=== PATIENT | male | born 1975 | race American Indian/Alaskan Native ===

== ENCOUNTER 2021-06-21 16:30 | Emergency (ER) | payer OTHER ==
--- NOTE | 2021-06-21 18:28 | Emergency Department Report ---
ED General Adult HPI - General Chief complaint: Extremity Injury, Upper Stated complaint: SWOLLEN LEFT HAND Time Seen by Provider: 06/21/21 17:29 Source: patient Mode of arrival: Ambulatory Limitations: No Limitations - History of Present Illness Initial comments: 45-year-old -[place] male patient presents with complaints of left hand pain for the past few days. Patient states the pain began after he shut his hand in a door. He rates the pain as a 6/10 in severity and denies trying any OTC medications for symptoms. No numbness tingling or weakness in the hand per patient. He states the hand appears red and states he has some difficulty making a fist. He denies any penetrating injuries -: Sudden - Related Data Previous Rx's Medication Instructions Recorded Last Taken Type Acetaminophen/Codeine [Tylenol 1 tab PO Q8H PRN #6 tab 06/21/21 Unknown Rx /Codeine # 3 tab] Clindamycin [Clindamycin CAP] 300 mg PO Q6H 10 Days #40 capsule 06/21/21 Unknown Rx Clobetasol Propionate [Temovate 1 gm TP BID PRN 7 Days #1 oint...g. 06/21/21 Unknown Rx 0.05%] Naproxen 500 mg PO BID PRN #20 tablet 06/21/21 Unknown Rx Allergies Allergy/AdvReac Type Severity Reaction Status Date / Time No Known Allergies Allergy Verified 06/21/21 17:22 ED Review of Systems ROS: Stated complaint: SWOLLEN LEFT HAND Other details as noted in HPI Constitutional: denies: chills, fever, malaise Musculoskeletal: joint swelling, arthralgia Skin: rash (Bilaterally to palms of hand) Neurological: denies: numbness, paresthesias ED Past Medical Hx - Medications Home Medications: Home Medications Medication Instructions Recorded Confirmed Last Taken Type Acetaminophen/Codeine [Tylenol 1 tab PO Q8H PRN #6 tab 06/21/21 Unknown Rx /Codeine # 3 tab] Clindamycin [Clindamycin CAP] 300 mg PO Q6H 10 Days #40 capsule 06/21/21 Unknown Rx Clobetasol Propionate [Temovate 1 gm TP BID PRN 7 Days #1 oint...g. 06/21/21 Unknown Rx 0.05%] Naproxen 500 mg PO BID PRN #20 tablet 06/21/21 Unknown Rx ED Physical Exam - General Limitations: No Limitations General appearance: alert, in no apparent distress - Head Head exam: Present: atraumatic, normocephalic - Eye Eye exam: Present: normal appearance - Respiratory Respiratory exam: Absent: respiratory distress - Cardiovascular Cardiovascular Exam: Present: regular rate - Extremities Exam Extremities exam: Present: other (Tenderness to palpation noted to left 3rd/4th/5th MCP joint with moderate swelling and mild overlying redness; decreased flexion of the finger secondary to swelling and pain; fingers have normal perfusion and sensation; normal radial/ulnar pulse noted; pain with passive ROM of the 4th/5th digits) - Neurological Exam Neurological exam: Present: alert, oriented X3 - Psychiatric Psychiatric exam: Present: normal affect, normal mood - Skin Skin exam: Present: warm, dry, rash (Dry plaque-like rash noted bilaterally to palms without erythema or drainage) ED Course Vital Signs 06/21/21 06/21/21 17:23 20:01 Temperature 98.2 F Pulse Rate 91 H Respiratory 18 12 Rate Blood Pressure 157/91 O2 Sat by Pulse 96 Oximetry ED Medical Decision Making - Lab Data Result diagrams: 06/21/21 19:32 06/21/21 19:32 Lab Results 06/21/21 06/21/21 Range/Units 19:32 19:32 WBC 9.9 (4.5-11.0) K/mm3 RBC 5.36 H (3.65-5.03) M/mm3 Hgb 16.6 H (11.8-15.2) gm/dl Hct 47.4 H (35.5-45.6) % MCV 88 (84-94) fl MCH 31 (28-32) pg MCHC 35 H (32-34) % RDW 15.0 (13.2-15.2) % Plt Count 176 (140-440) K/mm3 Lymph % (Auto) 26.6 (13.4-35.0) % [place] % (Auto) 10.7 H (0.0-7.3) % Eos % (Auto) 0.8 (0.0-4.3) % Baso % (Auto) 0.7 (0.0-1.8) % Lymph # (Auto) 2.6 (1.2-5.4) K/mm3 [place] # (Auto) 1.1 H (0.0-0.8) K/mm3 Eos # (Auto) 0.1 (0.0-0.4) K/mm3 Baso # (Auto) 0.1 (0.0-0.1) K/mm3 Seg Neutrophils % 61.2 (40.0-70.0) % Seg Neutrophils # 6.1 (1.8-7.7) K/mm3 Sodium 138 (137-145) mmol/L Potassium 3.8 (3.6-5.0) mmol/L Chloride 101.8 (98-107) mmol/L Carbon Dioxide 23 (22-30) mmol/L Anion Gap 17 mmol/L BUN 11 (9-20) mg/dL Creatinine 0.8 (0.8-1.3) mg/dL Estimated GFR > 60 ml/min BUN/Creatinine Ratio 14 % Glucose 105 H (75-100) mg/dL Calcium 9.2 (8.4-10.2) mg/dL Total Bilirubin 0.60 (0.1-1.2) mg/dL AST 24 (5-40) units/L ALT 34 (7-56) units/L Alkaline Phosphatase 83 (35-129) units/L Total Protein 7.8 (6.3-8.2) g/dL Albumin 4.1 (3.9-5) g/dL Albumin/Globulin Ratio 1.1 % - Radiology Data Radiology results: report reviewed - Medical Decision Making 45-year-old -[place] male patient presents with complaints of left hand pain for the past few days. Patient states the pain began after he shut his hand in a door. He rates the pain as a 6/10 in severity and denies trying any OTC medications for symptoms. No numbness tingling or weakness in the hand per patient. He states the hand appears red and states he has some difficulty making a fist. He denies any penetrating injuries X-ray shows soft tissue swelling without bony injury. Given erythema and moderate swelling along with painful passive range of motion of the fourth and fifth digits on exam, consulted with supervising physician, Dr. Vazquez. He recommends IV Ancef 2 g and basic labs. If no abnormal white count, patient is okay to DC home with follow-up first thing in the morning with Dr. Reza, orthopedics, and splinting of hand. White count is normal. He is nontachycardic and afebrile. Patient provided with referral. Patient placed in ulnar gutter splint. Clindamycin given for home. Discussed in great detail with patient the i mportance of follow-up in the morning with orthopedics and signs and symptoms that should prompt immediate return to the ED, he verbalized understanding. Critical care attestation.: If time is entered above; I have spent that time in minutes in the direct care of this critically ill patient, excluding procedure time. ED Disposition Clinical Impression: Injury of left hand, Swelling of left hand Disposition: HOME / SELF CARE / HOMELESS Is pt being admited?: No Condition: Stable Instructions: Crush Injury of the Hand, Tenosynovitis Prescriptions: Clindamycin [Clindamycin CAP] 300 mg PO Q6H 10 Days #40 capsule Naproxen 500 mg PO BID PRN #20 tablet PRN Reason: pain Clobetasol Propionate [Temovate 0.05%] 1 gm TP BID PRN 7 Days #1 oint...g. PRN Reason: itching of hands Acetaminophen/Codeine [Tylenol /Codeine # 3 tab] 1 tab PO Q8H PRN #6 tab PRN Reason: Pain , Severe (7-10) Referrals: ABDIEL REZA MD [Staff Physician] - [facility] Forms: Work/School Release Form(ED)
--- NOTE | 2021-06-21 18:53 | XRay Report ---
LEFT HAND 4 VIEWS INDICATION / CLINICAL INFORMATION: swelling and pain at 5th,4th and 3rd MCP, injury COMPARISON: None available. FINDINGS: BONES and JOINT(S): No acute fracture or subluxation. No significant arthritis. SOFT TISSUES: Mild edema is noted dorsally along the hand. No other significant abnormality. ADDITIONAL FINDINGS: None. IMPRESSION: Mild left hand edema without other acute findings. Signer Name: Dustin Teixeira MD Signed: 06/21/2021 6:48 PM Workstation Name: [id number]
[2021-06-21] MEDS ORDERED: KETOROLAC 30 MG/1 ML INJ IV ONE (19:45)
--- NOTE | 2021-06-21 19:47 | Event Note ---
Date of service: 06/21/21 Face to Face: For this encounter I have reviewed the PA/TANK CHARGER documentation, treatment plan, medical decision making, and I had face to face time with this patient. Patient presented with left hand trauma. He had closed it in a door and this was blunt trauma. He has subsequently developed increasing pain and swelling. The pain is primarily in the ulnar aspect. There was no fever. There is no chills. He did not have any injury that broke the skin. On exam, patient has diffuse edema involving the entire left hand. There is tenderness with palpation over the digits. He has pain with any type of extension over the left ring and left little finger. He states that the left little finger is worse. there has been no fevers. He has not been icing. He has not been elevating. Patient has normal sensation of all 5 digits. There is brisk capillary refill. There is no pain with range of motion of the wrist.
[2021-06-21 19:53] LABS: Basophils # (Auto) 0.1 K/mm3 (0.0-0.1); Basophils % (Auto) 0.7 % (0.0-1.8); Eosinophils # (Auto) 0.1 K/mm3 (0.0-0.4); Eosinophils % (Auto) 0.8 % (0.0-4.3); Hematocrit 47.4 % (35.5-45.6); Hemoglobin 16.6 gm/dl (11.8-15.2); Lymphocytes # (Auto) 2.6 K/mm3 (1.2-5.4); Lymphocytes % (Auto) 26.6 % (13.4-35.0); Mean Corpuscular HGB Conc 35 % (32-34); Mean Corpuscular Volume 88 fl (84-94); Monocytes # (Auto) 1.1 K/mm3 (0.0-0.8); Monocytes % (Auto) 10.7 % (0.0-7.3); Platelet Count 176 K/mm3 (140-440); Red Blood Count 5.36 M/mm3 (3.65-5.03)
[2021-06-21 20:07] LABS: Alanine Aminotransferase 34 units/L (7-56); Albumin 4.1 g/dL (3.9-5); BUN/Creatinine Ratio 14; Blood Urea Nitrogen 11 mg/dL (9-20); Calcium 9.2 mg/dL (8.4-10.2); Hemolysis Index 7
[2021-06-21 21:58] VITALS: BP 126/79
== END 2021-06-21 21:58 | disposition home or self-care (01) ==
LOC: ED 16:30
DX: M79.642 Pain in left hand (principal); M79.89 Other specified soft tissue disorders; S69.92XA Unspecified injury of left wrist, hand and finger(s), initial encounter; Z79.899 Other long term (current) drug therapy; W22.8XXA Striking against or struck by other objects, initial encounter; Y93.89 Activity, other specified; Y92.89 Other specified places as the place of occurrence of the external cause; Y99.8 Other external cause status
CPT/HCPCS: 29125; 36415; 73130; 80053; 85025; 96374; 99284; J0690; J1885; 99283